=== PATIENT | female | born 1940 | race Caucasian/White ===

== ENCOUNTER 2017-10-04 11:31 | Outpatient (CLI) | payer MEDICARE, OTHER | END 2017-10-04 11:32 | disposition home or self-care (01) | LOC: BICMAMMO 11:31 | PROVIDERS: ATTEND Internal Medicine | DX: Z12.31 Encounter for screening mammogram for malignant neoplasm of breast (principal) | CPT/HCPCS: 77063; 77067 ==

== ENCOUNTER 2018-10-18 09:47 | Outpatient (CLI) | payer MEDICARE, OTHER ==
--- NOTE | 2018-10-18 10:29 | MMO ---
Bilateral MAMMO Bilat Screen [facility]. CLINICAL HISTORY: Patient is 77 years old and is seen for screening. The patient has no family history of breast cancer. The patient has no personal history of cancer. VIEWS: The views performed were: bilateral craniocaudal with tomosynthesis and bilateral mediolateral oblique with tomosynthesis. FILMS COMPARED: The present examination has been compared to prior imaging studies performed at [facility] on 10/04/2017, and at [facility] on 07/15/2013, 08/05/2014, 08/12/2015 and 09/27/2016. MAMMOGRAM FINDINGS: There are scattered fibroglandular densities. There are no suspicious masses, suspicious calcifications, or new areas of architectural distortion. IMPRESSION: THERE IS NO MAMMOGRAPHIC EVIDENCE OF MALIGNANCY. A ROUTINE FOLLOW-UP MAMMOGRAM IN 1 YEAR IS RECOMMENDED. THE RESULTS OF THIS EXAM WERE SENT TO THE PATIENT. ACR BI-RADS Category 1 - Negative MAMMOGRAPHY NOTE: 1. A negative mammogram report should not delay a biopsy if a dominant of clinically suspicious mass is present. 2. Approximately 10% to 15% of breast cancers are not detected by mammography. 3. Adenosis and dense breasts may obscure an underlying neoplasm.
== END 2018-10-18 09:48 | disposition home or self-care (01) ==
LOC: BICMAMMO 09:47
PROVIDERS: ATTEND Internal Medicine
DX: Z12.31 Encounter for screening mammogram for malignant neoplasm of breast (principal)
CPT/HCPCS: 77063; 77067

== ENCOUNTER 2019-04-04 13:48 | Outpatient (CLI) | payer MEDICARE, OTHER ==
--- NOTE | 2019-04-04 14:44 | BD ---
DEXA scan CLINICAL HISTORY: Osteopenia COMPARISON: 09/15/2015 FINDINGS: Lumbar spine: L1: T score 0.1, BMD 1.0 L2: T score -0.3, BMD 1.0 L3: T score -0.8, BMD 0.99 L4: T score -0.3, BMD 1.0 Total: T score -0.3, BMD 1.0 Left hip: NECK: T score -0.9, BMD 0.74 Total: T score -0.9, BMD 0.83 IMPRESSION: T scores indicate normal DEXA scan. Compared to prior exam, there has been improved bone mineral density.
== END 2019-04-04 13:49 | disposition home or self-care (01) ==
LOC: BICMAMMO 13:48
PROVIDERS: ATTEND Internal Medicine
DX: M85.80 Other specified disorders of bone density and structure, unspecified site (principal)
CPT/HCPCS: 77080

== ENCOUNTER 2019-10-21 10:41 | Outpatient (CLI) | payer MEDICARE, OTHER ==
--- NOTE | 2019-10-21 11:10 | MMO ---
Bilateral MAMMO Bilat Screen [facility]. CLINICAL HISTORY: Patient is 78 years old and is seen for screening. The patient has no family history of breast cancer. The patient has no personal history of cancer. VIEWS: The views performed were: bilateral craniocaudal with tomosynthesis and bilateral mediolateral oblique with tomosynthesis. FILMS COMPARED: The present examination has been compared to prior imaging studies performed at [facility] on 10/04/2017 and 10/18/2018, and at [facility] on 08/12/2015 and 09/27/2016. This study has been interpreted with the assistance of computer-aided detection. MAMMOGRAM FINDINGS: There are scattered fibroglandular densities. There are no suspicious masses, suspicious calcifications, or new areas of architectural distortion. IMPRESSION: THERE IS NO MAMMOGRAPHIC EVIDENCE OF MALIGNANCY. A ROUTINE FOLLOW-UP MAMMOGRAM IN 1 YEAR IS RECOMMENDED. THE RESULTS OF THIS EXAM WERE SENT TO THE PATIENT. ACR BI-RADS Category 1 - Negative MAMMOGRAPHY NOTE: 1. A negative mammogram report should not delay a biopsy if a dominant of clinically suspicious mass is present. 2. Approximately 10% to 15% of breast cancers are not detected by mammography. 3. Adenosis and dense breasts may obscure an underlying neoplasm. Reported by: NESHA POLANCO MD Electonically Signed: [id number]
== END 2019-10-21 10:42 | disposition home or self-care (01) ==
LOC: BICMAMMO 10:41
PROVIDERS: ATTEND Nurse Practitioner Family
DX: Z12.31 Encounter for screening mammogram for malignant neoplasm of breast (principal)
CPT/HCPCS: 77063; 77067

== ENCOUNTER 2020-02-28 10:30 | Outpatient (CLI) | payer MEDICARE, OTHER ==
[~2020-02-28 10:30] MED LIST: Iopamidol-370 76% 500 ML 1 ML ONE
--- NOTE | 2020-02-28 11:12 | ULT ---
Renal ultrasound: 02/28/2020 COMPARISON:None available HISTORY:Recurrent urinary tract infections TECHNIQUE: Multiplanar grayscale sonographic imaging of thekidneys and urinary bladder FINDINGS:Right kidney measures 9.6 x 4.3 x 4.3 cm and demonstrates no stone hydronephrosis or mass. Urinary bladder grossly unremarkable. Left kidney measures 8.7 x 4.1 x 5.0 cm and demonstrates no stone, hydronephrosis, or mass. IMPRESSION:No acute findings
--- NOTE | 2020-02-28 11:56 | CT ---
CT ABDOMEN AND PELVIS WITH IV CONTRAST 02/28/2020 CLINICAL INFORMATION: Epigastric abdominal pain for months. COMPARISON: CT thorax on 01/18/2010 Technique: Multiple contiguous axial CT images are obtained through the abdomen and pelvis with IV contrast. Cor onal reformatted images are provided. FINDINGS: Lower Chest: Stable approximately 3 mm pulmonary nodule posterior lower left lung base. Lung bases ar e otherwise clear. Vessels: Vascular calcifications in the abdominal aorta and iliac arteries. Abdomen: Portal vein:Patent Gallbladder: Within normal limits for CT imaging. Liver: within normal limits. Spleen: Multiple calcified granulomata. Pancreas: within normal limits. Adrenals: within normal limits. Kidneys: Subcentimeter too small to characterize hypodense lesion superior pole left kidney. No enhan cing renal mass or hydronephrosis is seen. Bowel: Evidence of colonic diverticulosis. Loops of small bowel are normal in caliber. There is quest ionable masslike density in the region of the fundus of the stomach near the gastric cardia. Loops of small bowel are normal in caliber. Appendix: The appendix is visualized and normal in caliber. Peritoneum: No ascites or free air; no fluid collection. Mesentery and Retroperitoneum: No enlarged mesenteric or retroperitoneal lymph nodes. Abdominal Wall: within normal limits. Pelvis: Reproductive Organs: Evidence of hysterectomy. Bladder: within normal limits. Bones: No suspicious lytic or sclerotic osseous lesions are identified. There is mild grade 1 anterol isthesis of L4 on L5 secondary to facet degenerative changes at this level. Scattered degenerative change are seen in the lower thoracic as well as involving the lumbar spine. IMPRESSION: 1. Suggestion of masslike density within the region of gastric fundus near the gastric cardia. Provid ed clinical information indicates patient had EGD performed one week ago. Correlation with findings on that examination is recommended as a mass could not be excluded based on CT evaluation. 2. Colonic diverticulosis. 3. Hysterectomy. 4. Degenerative changes in the spine with grade 1 anterolisthesis of L4 on L5. 5. Stable 3 mm pulmonary nodule at the left lung base which is unchanged in size compared to prior st y in 2009 suggesting a benign finding.
== END 2020-02-28 10:31 | disposition home or self-care (01) ==
LOC: BICULT 10:30
PROVIDERS: ATTEND Nurse Practitioner Family
DX: N39.0 Urinary tract infection, site not specified (principal); R10.9 Unspecified abdominal pain; K57.30 Diverticulosis of large intestine without perforation or abscess without bleeding; M47.816 Spondylosis without myelopathy or radiculopathy, lumbar region; M43.17 Spondylolisthesis, lumbosacral region; R91.1 Solitary pulmonary nodule; Z90.710 Acquired absence of both cervix and uterus
CPT/HCPCS: 74177; 76770; 82565; Q9967

== ENCOUNTER 2020-11-10 12:24 | Outpatient (CLI) | payer MEDICARE, OTHER | END 2020-11-10 12:25 | disposition home or self-care (01) | LOC: BICMAMMO 12:24 | PROVIDERS: ATTEND Nurse Practitioner Family | DX: Z12.31 Encounter for screening mammogram for malignant neoplasm of breast (principal) | CPT/HCPCS: 77063; 77067 ==

== ENCOUNTER 2021-11-15 11:19 | Outpatient (CLI) | payer MEDICARE, OTHER | END 2021-11-15 11:20 | disposition home or self-care (01) | LOC: BICMAMMO 11:19 | PROVIDERS: ATTEND Nurse Practitioner Family | DX: Z12.31 Encounter for screening mammogram for malignant neoplasm of breast (principal) | CPT/HCPCS: 77063; 77067 ==

== ENCOUNTER 2022-03-17 10:24 | Outpatient (CLI) | payer MEDICARE, OTHER | END 2022-03-17 10:25 | disposition home or self-care (01) | LOC: RAD-FRANK 10:24 | PROVIDERS: ATTEND Nurse Practitioner Family | DX: M25.562 Pain in left knee (principal); M17.12 Unilateral primary osteoarthritis, left knee ==

== ENCOUNTER 2022-06-27 07:28 | Outpatient (CLI) | payer MEDICARE, OTHER | END 2022-06-27 07:29 | disposition home or self-care (01) | LOC: ULT 07:28 | PROVIDERS: ATTEND Internal Medicine Gastroenterology | DX: R10.13 Epigastric pain (principal); Z80.0 Family history of malignant neoplasm of digestive organs | CPT/HCPCS: 76705 ==

== ENCOUNTER 2022-07-19 13:37 | Outpatient (CLI) | payer MEDICARE, OTHER | END 2022-07-19 13:38 | disposition home or self-care (01) | LOC: NM 13:37 | PROVIDERS: ATTEND Internal Medicine Gastroenterology | DX: R10.13 Epigastric pain (principal) | CPT/HCPCS: 78227; A9537 ==

== ENCOUNTER 2022-12-01 10:43 | Outpatient (CLI) | payer MEDICARE, OTHER | END 2022-12-01 10:44 | disposition home or self-care (01) | LOC: BICMAMMO 10:43 | PROVIDERS: ATTEND Nurse Practitioner Family | DX: Z12.31 Encounter for screening mammogram for malignant neoplasm of breast (principal) | CPT/HCPCS: 77063; 77067 ==

== ENCOUNTER 2022-12-18 13:18 | Observation (INO) | payer MEDICARE, OTHER ==
[2022-12-18 14:17] LABS: #Eosinphils 0.1 thou/uL (0.0-0.7); #Monocytes 0.7 thou/uL (0.11-0.59); #Neutrophils 6.4 thou/uL (1.40-6.50); %Basophils 0.4 % (0.0-1.0); %Eosinophils 0.7 % (0.0-10.0); %Lymphocytes 23.3 % (21.0-51.0); %Monocytes 7.2 % (0.0-10.0); %Neutrophils 68.1 % (42.0-75.0); Mean Corpuscular HGB CONC 34.4 g/dL (32.0-36.0); Mean Corpuscular Hemoglobin 30.3 pg (27.0-31.0); Mean Corpuscular Volume 88.1 fl (78.0-98.0); Platelet Count 283 10x3/uL (130-400); RBC Distribution Width 13.2 % (11.5-14.5); Red Blood Cell (RBC) Count 4.29 mill/uL (4.20-5.40); White Blood Cell (WBC) Count 9.4 10x3/uL (4.8-10.8)
[2022-12-18 14:40] LABS: ALT (SGPT) 14 U/L (8-55); AST (SGOT) 27 U/L (5-34); Albumin 4.2 g/dL (3.4-4.8); Alkaline Phosphatase 56 U/L (40-110); Anion Gap 16 mmol/L (10-20); BUN (Urea Nitrogen) 13 mg/dL (9.8-20.1); Bilirubin, Total 0.4 mg/dL (0.2-1.2); Calc. Creatinine Clearance 0 mL/min (70-130); Calcium 10.4 mg/dL (7.8-10.44); Carbon Dioxide 25 mmol/L (23-31); Chloride 101 mmol/L (98-107); Estimated GFR 70; Globulin 3.1 g/dL (2.4-3.5); Glucose 96 mg/dL (83-110); Lipase 13 U/L (8-78); Protein, Total 7.3 g/dL (5.8-8.1); Sodium 138 mmol/L (136-145)
[2022-12-18] MEDS ORDERED: diphenhydrAMINE 25 MG CAP PO PRN (16:34)
[2022-12-18] MEDS ORDERED: Ondansetron ODT 4 MG TAB PO PRN (16:36)
[2022-12-18] MEDS ORDERED: Ondansetron PF 4 MG/2 ML Vial IVP PRN (16:36)
[2022-12-18] MEDS ORDERED: Acetaminophen 325 MG TAB PO PRN (16:36)
[2022-12-18] MEDS ORDERED: Ketorolac Tromethamine 30 MG/ML VIAL ONE (16:43)
[2022-12-18] MEDS ORDERED: Aspirin Chewable 81 MG TAB ONE (16:43)
[2022-12-18] MEDS ORDERED: Amlodipine 5 MG TAB PO SCH (17:30)
[2022-12-18] MEDS ORDERED: Triamterene/Hydrochlorothiazide 37.5 mg/25 mg Tablet PO SCH (17:30)
[2022-12-18] MEDS ORDERED: Morphine 2 MG/ML VIAL SLOW IVP SCH (17:30)
[2022-12-18] MEDS ORDERED: Amlodipine 5 MG TAB ONE (17:31)
[2022-12-18 19:22] LABS: Troponin I Less than 0.010 ng/mL (< 0.028)
[2022-12-18] MEDS ORDERED: Atorvastatin Calcium 40 MG TAB PO SCH (21:00)
[2022-12-18 21:02] VITALS: BMI 29.3
[2022-12-18 22:03] LABS: Troponin I Less than 0.010 ng/mL (< 0.028)
[2022-12-19 05:52] LABS: #Basophils 0.1 thou/uL (0.0-0.2); #Eosinphils 0.3 thou/uL (0.0-0.7); #Neutrophils 5.7 thou/uL (1.40-6.50); %Basophils 0.5 % (0.0-1.0); %Eosinophils 3.2 % (0.0-10.0); %Neutrophils 61.1 % (42.0-75.0); Hemoglobin 12.7 g/dL (12.0-16.0); Mean Corpuscular HGB CONC 33.1 g/dL (32.0-36.0); Mean Corpuscular Hemoglobin 29.7 pg (27.0-31.0); Mean Corpuscular Volume 89.9 fl (78.0-98.0); Mean Platelet Volume 10.1 fL (7.4-10.4); Platelet Count 263 10x3/uL (130-400); RBC Distribution Width 13.2 % (11.5-14.5); Red Blood Cell (RBC) Count 4.27 mill/uL (4.20-5.40); White Blood Cell (WBC) Count 9.4 10x3/uL (4.8-10.8)
[2022-12-19 06:07] LABS: Anion Gap 14 mmol/L (10-20); BUN (Urea Nitrogen) 18 mg/dL (9.8-20.1); Calc. Creatinine Clearance 50 mL/min (70-130); Calcium 9.6 mg/dL (7.8-10.44); Carbon Dioxide 25 mmol/L (23-31); Chloride 104 mmol/L (98-107); Cholesterol 160 mg/dl (< 200 Desired); Estimated GFR 60; Glucose 91 mg/dL (83-110); HDL Cholesterol 82 mg/dL (>60 Neg Risk); LDL Cholesterol, Calculated 68 mg/dL; Potassium 3.5 mmol/L (3.5-5.1); Sodium 139 mmol/L (136-145); Triglycerides 48 mg/dL (Less than 150)
[2022-12-19] MEDS ORDERED: Amlodipine 5 MG TAB PO SCH (09:00)
[2022-12-19] MEDS ORDERED: Raloxifene 60 MG TAB PO SCH (09:00)
[2022-12-19] MEDS ORDERED: [UNRECOGNIZED DRUG - OTHER] PO SCH (09:00)
[2022-12-19] MEDS ORDERED: Triamterene/Hydrochlorothiazide 37.5 mg/25 mg Tablet PO SCH (09:00)
[2022-12-19] MEDS ORDERED: Aspirin 81 mg Enteric Coated Tablet PO SCH (09:00)
[2022-12-19] MEDS ORDERED: Cholecalciferol 1,000 UNITS (25 MCG) TAB PO SCH (09:00)
[2022-12-19] MEDS ORDERED: GLUCOSAMINE PO SCH (09:00)
[2022-12-19] MEDS ORDERED: CHONDROITIN PO SCH (09:00)
[2022-12-19 12:23] VITALS: TEMP 98.3
[2022-12-19 13:16] VITALS: BP 197/81
== END 2022-12-19 13:28 | disposition home or self-care (01) ==
LOC: ERS 13:18 → ERHOLD 16:07 → 2SW 20:25
PROVIDERS: ADMIT Internal Medicine; ATTEND Internal Medicine
DX: R29.90 Unspecified symptoms and signs involving the nervous system (principal); R51.9 Headache, unspecified; I10 Essential (primary) hypertension; K21.9 Gastro-esophageal reflux disease without esophagitis; E78.5 Hyperlipidemia, unspecified; Z88.2 Allergy status to sulfonamides; Z88.8 Allergy status to other drugs, medicaments and biological substances; Z79.899 Other long term (current) drug therapy
CPT/HCPCS: 70450; 70551; 71045; 80048; 80053; 80061; 83690; 84484 ×2; 85025 ×2; 93005; 96374; 99285; G0378 ×3; 36415; J1885

== ENCOUNTER 2023-01-09 14:15 | Outpatient (CLI) | payer MEDICARE, OTHER | END 2023-01-09 14:16 | disposition home or self-care (01) | LOC: RAD-FRANK 14:15 | PROVIDERS: ATTEND Nurse Practitioner Family | DX: M25.552 Pain in left hip (principal) ==